=== PATIENT | female | born 1975 | race Hispanic/Latino ===

== ENCOUNTER 2023-11-25 19:10 | Emergency (ER) | payer SELFPAY ==
[2023-11-25 21:16] LABS: Absolute Basophils 0.1 K/uL (0-0.5); Absolute Eosinophils 0.1 K/uL (0-0.5); Absolute Monocytes 0.5 K/uL (0.1-1.3); Absolute Neutrophil 5.4 K/uL (1.8-8.0); Basophils % 0.8 % (0-1.3); Eosinophils % 1.2 % (0-4.4); Hematocrit 23.8 % (36.0-45.0); Hemoglobin 6.2 g/dL (12.0-15.0); Lymphocytes % 33.1 % (15.3-44.8); MCH 12.7 pg (27.0-35.0); MCHC 26.1 g/dL (32.0-36.0); MCV < 50.0 fL (80-100); MPV 8.9 fL (7.6-11.3); Monocytes % 5.8 % (3.3-12.3); Neutrophils % 59.1 % (41.7-73.7); Nucleated Red Blood Cells % 0.1 % (0-0); Platelets 273 thou/uL (152-406); Red Cell Distribution Width 23.5 % (12.1-15.2)
[2023-11-25 21:30] LABS: Anion Gap 10.4 mEq/L (5.0-15.0); Potassium 3.4 mEq/L (3.5-5.1)
[2023-11-25 21:34] LABS: Specific Gravity 1.024 (1.005-1.030); Sqamous Epithelial <5 /HPF (None Seen); Urine Bacteria None Seen /HPF (<20); Urine Bilirubin NEGATIVE (Negative); Urine Blood Negative (Negative); Urine Clarity Turbid (Clear); Urine Color Light-Yellow (Yellow); Urine Culture Reflex Order NOT NEEDED; Urine Glucose 4+ (Over) (Negative); Urine Ketones NEGATIVE (Negative); Urine Microscopic Reflex YN ORDER UMIC; Urine Mucus Slight /HPF (None Seen); Urine Nitrite NEGATIVE (Negative); Urine Protein NEGATIVE (Negative); Urine RBC <5 /HPF (None Seen); Urine Urobilinogen Normal (Normal); Urine WBC <5 /HPF (<5)
[2023-11-25 21:55] LABS: Platelet Estimate ADEQ; White Blood Cell Scan OK (OK)
[2023-11-25 21:56] LABS: Anisocytosis 2+; Blood Morphology Comment NOTED (NOT SEEN); Hypochromasia 3+; Microcytosis 3+
[2023-11-25] MEDS ORDERED: NA CHLORIDE 0.9% 250 ML ONE (22:50)
--- NOTE | 2023-11-26 01:02 | ER ---
Nurse's Notes [facility] Name: Gosia Arroyo Age: 48 yrs Sex: Female : 1975 Arrival Date: 11/25/2023 Time: 19:10 Bed 5 Private MD: Josh Rodriguez Diagnosis: Iron deficiency anemia secondary to blood loss (chronic) Presentation: 11/24 19:33 Chief complaint: Patient states: Sent by PCP for blood transfusion. Had blood drawn nj1 yesterday, has never had a blood transfusion in the past, states her period is heavy and sometimes she gets dizzy along with fatigue. Coronavirus screen: Vaccine status: Patient reports being unvaccinated. Ebola Screen: Patient denies travel to an Ebola-affected area in the 21 days before illness onset. Initial Sepsis Screen: Does the patient meet any 2 criteria? HR > 90 bpm. No. Patient's initial sepsis screen is negative. Does the patient have a suspected source of infection? No. Patient's initial sepsis screen is negative. Risk Assessment: Do you want to hurt yourself or someone else? Patient reports no desire to harm self or others. Onset of symptoms was October 2023. 19:33 Method Of Arrival: Ambulatory [facility] 19:33 Acuity: YASMIN 3 nj1 Triage Assessment: 19:37 General: Appears in no apparent distress. comfortable, Behavior is calm, cooperative, nj1 appropriate for age. Pain: Denies pain. 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 - Infectious Disease History:: Denies. - Social history:: Smoking status: Patient denies any tobacco usage or history of. Screenin:04 [facility] ED Fall Risk Assessment (Adult) History of falling in the last 3 months, lg3 including since admission No falls in past 3 months (0 pts). Abuse screen: Denies threats or abuse. Denies injuries from another. Nutritional screening: No deficits noted. Tuberculosis screening: No symptoms or risk factors identified. Assessment: 23:04 General: Appears in no apparent distress. comfortable, Behavior is calm, cooperative. lg3 Pain: Denies pain. Neuro: No deficits noted. Dooley Agitation-Sedation Scale (RASS): 0 - Alert and Calm Level of Consciousness is awake, alert, obeys commands, Oriented to person, place, time, situation, Reports weakness. Cardiovascular: No deficits noted. Denies chest pain, shortness of breath, Capillary refill < 3 seconds Clubbing of nail beds is absent JVD is absent Patient's skin is warm and dry. Respiratory: No deficits noted. Airway is patent Respiratory effort is even, unlabored, Respiratory pattern is regular, symmetrical, Breath sounds are clear bilaterally. GI: No deficits noted. No signs and/or symptoms were reported involving the gastrointestinal system. Abdomen is round non-distended, obese, Patient currently denies abdominal pain. : No deficits noted. No signs and/or symptoms were reported regarding the genitourinary system. EENT: No deficits noted. No signs and/or symptoms were reported regarding the EENT system. Derm: No deficits noted. No signs and/or symptoms reported regarding the dermatologic system. Skin is intact, is healthy with good turgor, Skin is dry, Skin is normal, Skin temperature is warm. Musculoskeletal: No deficits noted. No signs and/or symptoms reported regarding the musculoskeletal system. Circulation, motion, and sensation intact. Range of motion: intact in all extremities. 11/25 00:48 Reassessment: No changes from previously documented assessment. Patient and/or family vc1 updated on plan of care and expected duration. Pain level reassessed. Patient is alert, oriented x 3, equal unlabored respirations, skin warm/dry/pink. 01:15 General: PT to DC post blood administration. lg3 01:30 Reassessment: Patient appears in no apparent distress at this time. No changes from vc1 previously documented assessment. Patient and/or family updated on plan of care and expected duration. Pain level reassessed. Patient is alert, oriented x 3, equal unlabored respirations, skin warm/dry/pink. Vital Signs: 11/24 19:33 BP 160 / 63; Pulse 95; Resp 16; Temp 98.9(O); Pulse Ox 100% on R/A; Weight 81.65 kg; nj1 Height 4 ft. 11 in. ; 23:04 BP 146 / 71; Pulse 88; Resp 16 S; Temp 97.8(O); Pulse Ox 100% on R/A; Pain 0/10; lg3 23:10 vc1 11/25 00:00 BP 135 / 73; Pulse 90; Resp 20; Pulse Ox 100% ; vc1 01:45 BP 136 / 72; Pulse 84; Resp 22; Temp 98.6; Pulse Ox 100% ; vc1 11/24 19:33 Body Mass Index 36.29 (81.65 kg, 150 cm) nj1 23:04 Pain Scale: Adult 3 11/24 23:10 See transfusion record vc1 ED Course: 19:14 Patient arrived in ED. mr 19:14 Josh Rodriguez is Private Physician. mr 19:25 Terri Bosch PA-C is PHCP. sb4 19:25 Julian Tavera MD is Attending Physician. sb4 19:36 Triage completed. nj1 19:36 Arm band placed on left wrist. nj1 20:58 Basic Metabolic Panel Sent. bc6 20:58 CBC with Diff Sent. bc6 20:58 Type And Screen Sent. bc6 20:59 Initial lab(s) drawn, by nc, sent to lab. Inserted saline lock: 20 gauge in left bc6 antecubital area, using aseptic technique. Blood collected. 22:56 Hayley Marc, RN is Primary Nurse. vc1 23:04 Patient has correct armband on for positive identification. Placed in gown. Bed in low lg3 position. Call light in reach. Side rails up X 1. Client placed on continuous cardiac and pulse oximetry monitoring. NIBP monitoring applied. hall monitor on. Door closed. Noise minimized. Warm blanket given. Consent for blood and/or blood product transfusion explained by physician, signed by patient. Family accompanied patient. 23:04 Patient maintains SpO2 saturation greater than 95% on room air. lg3 23:08 Provided Education on: Blood Transfusion. vc1 11/25 01:01 Josh Rodriguez is Referral Physician. sb4 01:54 No provider procedures requiring assistance completed. IV discontinued, intact, vc1 bleeding controlled, No redness/swelling at site. Pressure dressing applied. Administered Medications: No medications were administered Medication: 01:50 VIS not applicable for this client. vc1 Outcome: 01:01 Discharge ordered by . sb4 01:54 Discharged to home ambulatory, vc1 01:54 Condition: good 01:54 Discharge instructions given to patient, Instructed on discharge instructions, follow up and referral plans. medication usage, Demonstrated understanding of instructions, follow-up care, wound care, Prescriptions given X 1, 01:55 Patient left the ED. vc1 Signatures: Nahomy Morgan, Reg Reg mr Able, Joan, RN RN lg3 Hayley Marc RN RN vc1 Terri Bosch PA-C PAKiki sb4 Keisha Young bc6 Viola Alejandro, RN RN nj1
--- NOTE | 2023-11-26 01:02 | EDPHYS ---
Physician Documentation [facility] Name: Gosia Arroyo Age: 48 yrs Sex: Female : 1975 Arrival Date: 11/25/2023 Time: 19:10 Bed 5 Private MD: Josh Rodriguez ED Physician Julian Tavera HPI: 11/24 20:57 This 48 yrs old Female presents to ER via Ambulatory with complaints of sb4 Abnormal Lab Results. 20:57 patient had routine blood work done with PCP and told she was anemic and needed blood sb4 transfusion. she endorses heavy menstrual cycles but no other abnormal bleeding. she reports intermittent sob, fatigue, dizziness. has known history of anemia but denies any prior blood transfusions. 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 - Infectious Disease History:: Denies. - Social history:: Smoking status: Patient denies any tobacco usage or history of. ROS: 20:57 Respiratory: Negative for shortness of breath, cough, wheezing, and pleuritic chest sb4 pain, 20:57 Constitutional: Positive for fatigue, 20:57 Neuro: Positive for dizziness, 20:57 All other systems are negative, Exam: 20:57 Constitutional: This is a well developed, well nourished patient who is awake, alert, sb4 and in no acute distress. Head/Face: Normocephalic, atraumatic. Eyes: Extra-ocular motions intact. Periorbital areas with no swelling, redness, or edema. ENT: Mucous membranes moist. Cardiovascular: Regular rate and rhythm with a normal S1 and S2. Respiratory: Lungs have equal breath sounds bilaterally, clear to auscultation and percussion. No rales, rhonchi or wheezes noted. No increased work of breathing, no retractions or nasal flaring. Abdomen/GI: Soft, non-tender, no distension. Skin: Warm, dry with normal turgor. Normal color with no rashes, no lesions, and no evidence of cellulitis. MS/ Extremity: Pulses equal, no cyanosis. Neurovascular intact. Full, normal range of motion. Neuro: Awake and alert, GCS 15, oriented to person, place, time, and situation. Motor strength 5/5 in all extremities. Sensory grossly intact. Vital Signs: 19:33 BP 160 / 63; Pulse 95; Resp 16; Temp 98.9(O); Pulse Ox 100% on R/A; Weight 81.65 kg; nj1 Height 4 ft. 11 in. ; 23:04 BP 146 / 71; Pulse 88; Resp 16 S; Temp 97.8(O); Pulse Ox 100% on R/A; Pain 0/10; lg3 23:10 vc1 11/25 00:00 BP 135 / 73; Pulse 90; Resp 20; Pulse Ox 100% ; vc1 01:45 BP 136 / 72; Pulse 84; Resp 22; Temp 98.6; Pulse Ox 100% ; vc1 11/24 19:33 Body Mass Index 36.29 (81.65 kg, 150 cm) nj1 23:04 Pain Scale: Adult lg3 11/24 23:10 See transfusion record vc1 MDM: 19:42 Patient medically screened. sb4 11/25 01:01 Data reviewed: vital signs, nurses notes, lab test result(s), I have discussed the sb4 patient's presentation/case with the attending Emergency Department Physician; and as a result, I will discharge patient. Counseling: I had a detailed discussion with the patient and/or guardian regarding the historical points, exam findings, and any diagnostic results supporting the discharge/admit diagnosis, lab results, the need for outpatient follow up, for definitive care, for repeat blood work in 1 week, to return to the emergency department if symptoms worsen or persist or if there are any questions or concerns that arise at home. 11/24 19:49 Order name: Basic Metabolic Panel; Complete Time: 21:31 sb4 11/24 19:49 Order name: CBC with Diff; Complete Time: 21:58 sb4 11/24 19:49 Order name: Test, Urine; Complete Time: 21:34 sb4 11/24 19:49 Order name: Type And Screen sb4 11/24 19:49 Order name: Urinalysis w/ reflexes; Complete Time: 21:34 sb4 11/24 21:56 Order name: CBC Smear Scan; Complete Time: 21:58 EDMS 11/24 22:00 Order name: ABO/RH no charge; Complete Time: 22:00 EDMS 11/24 22:03 Order name: Packed RBC Leukored EDMS 11/24 19:49 Order name: Labs collected and sent; Complete Time: 20:58 sb4 Administered Medications: No medications were administered Disposition Summary: 11/26/23 01:01 Discharge Ordered Notes: Location: Home sb4 Problem: an ongoing problem sb4 Symptoms: have improved sb4 Condition: Stable sb4 Diagnosis - Iron deficiency anemia secondary to blood loss (chronic) sb4 Followup: sb4 - With: Josh Rodriguez - When: As needed - Reason: Recheck today's complaints, Re-evaluation by your physician Discharge Instructions: - Discharge Summary Sheet sb4 - Iron Deficiency Anemia, Adult sb4 - Blood Transfusion, Adult, Care After, [id number] sb4 Forms: - Thank You Letter sb4 - Patient Portal Instructions sb4 - Leadership Thank You Letter sb4 Prescriptions: - Ferrous Sulfate 325 mg (65 mg Iron) Oral tablet - take 1 tablet ORAL route once daily; 30 tablet; Refills: 0, Product Selection sb4 Permitted Signatures: Dispatcher [employer] EDMS Terri Bosch PA-C PAKiki sb4 Viola Alejandro RN RN nj1 Corrections: (The following items were deleted from the chart) 11/24 19:50 19:49 BASIC METABOLIC PANEL+C.LAB.BRZ ordered. EDMS EDMS 19:50 19:49 CBC+H.LAB.BRZ ordered. EDMS EDMS 19:50 19:49 Test, Urine+UC.LAB.BRZ ordered. EDMS EDMS 19:50 19:49 TYPE AND SCREEN+BB.LAB.BRZ ordered. EDMS EDMS 19:50 19:49 Urinalysis+U.LAB.BRZ ordered. EDMS EDMS
[2023-11-26 02:15] VITALS: BP 136/72; TEMP 98.6; O2SAT 100
== END 2023-11-26 01:55 | disposition home or self-care (01) ==
LOC: ER 19:10
PROC: 30233N1 Transfusion of Nonautologous Red Blood Cells into Peripheral Vein, Percutaneous Approach (ICD-10-PCS; principal; 2023-11-26)
DX: D50.0 Iron deficiency anemia secondary to blood loss (chronic) (principal)
CPT/HCPCS: 36415; 80048; 81001; 81025; 85025; 86850; 86900; 86901; 86920; J7050; P9016